=== PATIENT | female | born 1950 | race Caucasian/White ===

== ENCOUNTER 2017-06-17 05:38 | Outpatient (CLI) | payer MEDICARE ==
[~2017-06-17] VITALS: Ht 157.5 cm; Wt 63.7 kg
[~2017-06-17 05:38] MED LIST: ASP325T PO; CLD600T PO; IRB150T; IRBE1TAB15 PO; KCL10CCR PO; LEVO500T69 PO; LOSA1TAB20 PO; MULT1TAB63 PO; OMEPRAZOLE; SIMVASTATIN
[2017-06-17] MEDS ORDERED: CHOL20003 PO (11:06)
[2017-06-17] MEDS ORDERED: OMEP20TA7 PO (11:06)
[2017-06-17] MEDS ORDERED: SIMV20TA3 PO (11:06)
== END 2017-06-17 11:10 ==
LOC: PREOP 05:38
PROVIDERS: ATTEND Internal Medicine
DX: Z01.818 Encounter for other preprocedural examination (principal); D50.9 Iron deficiency anemia, unspecified; R10.32 Left lower quadrant pain

== ENCOUNTER 2017-06-18 07:21 | Day surgery (SDC) | payer MEDICARE ==
--- NOTE | 2017-06-17 12:33 | HISTORY AND PHYSICAL ---
DATE OF ADMISSION: 06/18/2017 DICTATING PHYSICIAN: Dr. Ny Ms. Mauricio is a 66-year-old white female who presented for routine follow-up on 05/31. She reports that she has been having some intermittent left lower quadrant abdominal pain without chills or fever. She denied bright red blood per rectum or melena. CBC was obtained, which did reveal mild microcytic anemia presumed iron deficiency with a hemoglobin of 12.8 and MCV of 78.7. Her RDW was significantly elevated at 18.7 and other CBC parameters as well as basic metabolic panel were unremarkable. It has been over 5 years since her last colonoscopy that revealed no evidence for neoplasia. She had a recent traumatic related hematoma involving the right ankle for which swelling and pain is completely resolved. She does have a history of hypertension and felt that diuretic therapy was aggravating urinary frequency. She really did not notice any change with the switch from losartan HCT 15/12.5 to losartan 100 mg daily in regards to urinary frequency; however, her blood pressure has been consistently in the 140 to 150/85 to 95 range at home. She has not had any problems with incontinence and denies dysuria, flank pain or hematuria. FAMILY HISTORY: She is not aware of any family history for colon cancer or polyps. She has no past smoking or drinking history. PAST MEDICAL HISTORY: Other than hypertension is significant for hyperlipidemia with no known history of coronary artery disease. She has a history of gastroesophageal reflux requiring chronic PPI therapy in the form of omeprazole 20 mg daily. PHYSICAL EXAMINATION: Reveals a white female, appears to be in no acute distress. VITAL SIGNS: Blood pressure at the beginning of the interview was 152/82, at the end of the interview was 160/85. Weight was stable at 137 pounds. CHEST: Clear. CV: Revealed a regular rate and rhythm without murmur, S3 or S4. ABDOMEN: Soft, supple. She had left lower quadrant pain to palpation without rebound or guarding. No mass or organomegaly was noted. Bowel sounds were noted in all 4 quadrants. ASSESSMENT: Iron deficiency anemia with left lower quadrant abdominal pain. After discussion, the patient does consent to colonoscopy. She was given a Andrea-prep kit and scheduled for the 06/18, an earlier time was offered but the patient wished to wait due to family activities until 06/18. Prep instructions were given and questions were answered. 25 minutes a personal time was spent in interview, examination and dictation with another 15 minutes of staff time. Sincerely, Job ID: [id number] Dictated Date: 05/31/2017 21:18:00 Ore Crushing Dust Collector Date: 06/01/2017 10:02:31/isiah
[~2017-06-18] VITALS: Ht 157.5 cm; Wt 63.7 kg
[~2017-06-18 07:21] MED LIST changes: +CHOL20003 PO; +OMEP20TA7 PO; +SIMV20TA3 PO
[2017-06-18 07:40] VITALS: BP 152/92
[2017-06-18] MEDS ORDERED: LIDOCAINE JELLY 2% (XYLOCAINE) 5 ML TUBE MM PRN (07:45)
[2017-06-18] MEDS ORDERED: 1/2 NS IV SOLUTION 1,000 ML IV PRN (07:45)
[2017-06-18] MEDS ORDERED: MIDAZOLAM 2 MG/2 ML (VERSED) VIAL ONE ×3 (08:30→08:56)
[2017-06-18] MEDS ORDERED: LIDOCAINE JELLY 2% (XYLOCAINE) 5 ML TUBE ONE (08:30)
[2017-06-18] MEDS ORDERED: fentaNYL INJECTION 100 MCG/2 ML AMP ONE ×2 (08:30→08:46)
[2017-06-18] MEDS: fentaNYL INJECTION 100 MCG/2 ML AMP IVP PRN ×3 (08:37→08:53)
[2017-06-18] MEDS: MIDAZOLAM 2 MG/2 ML (VERSED) VIAL IVP PRN ×4 (08:39→09:02)
[2017-06-18] MEDS ORDERED: ONDANSETRON 4 MG/2 ML (SDV) Z0FRAN ONE (08:46)
[2017-06-18 09:50] VITALS: BP 159/89
[2017-06-18 10:20] VITALS: BP 143/83
--- NOTE | 2017-06-18 12:22 | OPERATIVE REPORT ---
DATE OF SERVICE: PROCEDURE: Colonoscopy. INDICATION FOR PROCEDURE: A diagnostic colonoscopy done for iron deficiency anemia and left lower quadrant abdominal pain. The patient was placed in the left lateral decubitus position. Prior to undergoing colonoscopy digital rectal evaluation was performed. Anal sphincter tone was normal and perianal reflexes intact. Digital evaluation suggests an anterior rectocele with no other abnormalities being noted on digital inspection of anal canal or distal rectal vault. The colonoscope was then inserted into the rectum under direct visualization, advanced to the cecum. The cecum was identified by identification of the ileocecal valve and cecal strap. Photographic documentation was obtained. Careful inspection was made as the colonoscope was withdrawn. The patient tolerated the procedure well. FINDINGS: There is no evidence for internal or external hemorrhoids and the rectum was unremarkable. The patient did have an irritable bowel type response to air insufflation and colonic manipulation with a lot of cecal spasm. There was also one area where there appeared to be likely extrinsic adhesions. There was no evidence or stricture formation or evidence for neoplasia at this level in the distal sigmoid colon. With some difficulty, I was able to get beyond the area. No evidence for inflammation was noted. Several small diverticulum were noted confined to the sigmoid colon without evidence for diverticulitis. The descending colon, transverse colon, ascending colon were unremarkable. There was a small amount of blood in the cecum without evidence for active oozing at the time of the procedure. There appeared to be some subtle areas of likely angiodysplasia. The ileocecal valve was unremarkable and no evidence for blood was noted in the distal several centimeters of the terminal ileum. ASSESSMENT: 1. Likely angiodysplasia with a small amount of blood being noted in the cecum, the most likely cause of this patient's mild iron deficiency anemia. 2. The patient did have an irritable bowel type response to air insufflation and colonic manipulation. She was advised to come to the office for an irritable bowel syndrome sheet, but also has a low FODMAP diet list to follow. 3. There is an area in the distal sigmoid colon where there are likely some narrowing due to extrinsic adhesions without evidence for stricture formation or neoplasia. No evidence for acute diverticulitis, was noted. The patient does have a history of total abdominal hysterectomy. 4. We will be repeating a CBC in one month. We will add iron therapy if her counts are not recovering off of aspirin and all other antiplatelet therapy. Job ID: [id number] DocumentID: [id number] Dictated Date: 06/18/2017 11:51:46 Animation Camera Operator Date: 06/18/2017 12:22:12 Dictated By: JOE FELTON MD
[2017-06-18] MEDS ORDERED: ONDANSETRON 4 MG/2 ML (SDV) Z0FRAN IVP ONE (14:00)
== END 2017-06-18 11:35 | disposition home or self-care (01) ==
LOC: ENDO 07:21
PROVIDERS: ATTEND Internal Medicine
DX: D50.9 Iron deficiency anemia, unspecified (principal); K92.2 Gastrointestinal hemorrhage, unspecified; K57.30 Diverticulosis of large intestine without perforation or abscess without bleeding; K66.0 Peritoneal adhesions (postprocedural) (postinfection); I10 Essential (primary) hypertension; E78.00 Pure hypercholesterolemia, unspecified; I25.10 Atherosclerotic heart disease of native coronary artery without angina pectoris; K21.9 Gastro-esophageal reflux disease without esophagitis; Z79.899 Other long term (current) drug therapy

== ENCOUNTER → 2017-10-14 | Outpatient (CLI) | payer MEDICARE | LOC: RAD 12:36 | PROVIDERS: ATTEND Internal Medicine | DX: Z12.31 Encounter for screening mammogram for malignant neoplasm of breast (principal) | CPT/HCPCS: 77067 ==

== ENCOUNTER → 2018-10-17 | Outpatient (CLI) | payer MEDICARE ==
--- NOTE | 2018-10-17 11:21 | Diagnostic Imaging Report ---
INDICATION: Routine screening. Comparison is made with prior mammogram from 10/14/2017 and 10/06/2016. 2-D and 3-D bilateral screening mammography was performed with CAD. Scattered fibroglandular densities are identified bilaterally. Benign calcifications are identified on the right. No dominant mass or malignant appearing microcalcifications are seen. The axillae are unremarkable. Impression: BI-RADS category 2 No mammographic features suspicious for malignancy are identified. ACR BI-RADS Category 2: Benign findings. Result letter will be mailed to the patient. Note: At least 10% of breast cancer is not imaged by mammography. Dictated by: Dictated on workstation # [id number]
== END ==
LOC: RAD 09:34
PROVIDERS: ATTEND Internal Medicine
DX: Z12.31 Encounter for screening mammogram for malignant neoplasm of breast (principal)
CPT/HCPCS: 77067

== ENCOUNTER 2019-01-12 14:15 | Emergency (ER) | payer MEDICARE ==
[~2019-01-12] VITALS: Ht 157.5 cm; Wt 57.2 kg
[2019-01-12 15:08] LABS: BASOPHILS % (AUTO) 0 % (0-10); EOSINOPHILS % (AUTO) 0 % (0-10); HEMATOCRIT 45 % (35-52); HEMOGLOBIN 15.3 G/DL (11.5-16.0); LYMPHOCYTES # (AUTO) 1.1 X 10^3 (1.0-4.0); LYMPHOCYTES % (AUTO) 16 % (12-44); MEAN CORPUSCULAR HEMOGLOBIN 30 PG (25-34); MEAN CORPUSCULAR HGB CONC 34 G/DL (32-36); MEAN CORPUSCULAR VOLUME 88 FL (80-99); MEAN PLATELET VOLUME 9.7 FL (7.4-10.4); MONOCYTES # (AUTO) 0.8 X 10^3 (0.0-1.0); MONOCYTES % (AUTO) 11 % (0-12); NEUTROPHILS # (AUTO) 5.2 X 10^3 (1.8-7.8); NEUTROPHILS % (AUTO) 73 % (42-75); PLATELET COUNT 144 10^3/uL (130-400); RED CELL DISTRIBUTION WIDTH 13.8 % (10.0-14.5); WHITE BLOOD COUNT 7.1 10^3/uL (4.3-11.0)
--- NOTE | 2019-01-12 15:12 | ED Cough/URI ---
General Chief Complaint: Cough/Cold/Flu Symptoms Stated Complaint: POSS PNEUMONIA Source: patient Exam Limitations: no limitations History of Present Illness Date Seen by Provider: Jan 12, 2019 Time Seen by Provider: 15:10 Initial Comments To ER with reports of possible pneumonia. This began on Wednesday01/09/19 with reports of rhinorrhea and sore throat after working out in the leaves. She's had no appetite and general fatigue and has laid around most of the week. Starting today she developed fever up to 101 and a productive cough. She has no pre-existing known lung disorder such as COPD or asthma. Timing/Duration: constant, getting worse Severity/Quality: productive cough Prior Episodes/Possible Cause: no prior episodes Modifying Factors: Improves With Coughing Associated Symptoms: cough, muscle aches, nasal congestion, nasal drainage, shortness of breath, sore throat Allergies and Home Medications Allergies Coded Allergies: Penicillins (Verified Allergy, Unknown, 06/17/17) erythromycin base (Verified Allergy, Unknown, 06/17/17) meperidine (Verified Allergy, Unknown, 06/17/17) Home Medications Albuterol Sulfate 1 Puff Puff, 2 PUFF IH Q4H PRN for SHORTNESS OF BREATH 1 PUFF = 90 MCG Prescribed by: HONEY ROSA on 01/12/19 1548 Cholecalciferol (Vitamin D3) 2,000 Unit Capsule, 2,000 UNIT PO DAILY, (Reported) Doxycycline Monohydrate 100 Mg Capsule, 100 MG PO BID Prescribed by: HONEY ROSA on 01/12/19 1548 Losartan/Hydrochlorothiazide 1 Each Tablet, 1 TAB PO DAILY, (Reported) Omeprazole 20 Mg Tablet.dr, 20 MG PO DAILY, (Reported) Ondansetron 4 Mg Tab.rapdis, 4 MG PO Q6H PRN for NAUSEA/VOMITING Prescribed by: HONEY ROSA on 01/12/19 1548 Simvastatin 20 Mg Tablet, 20 MG PO HS, (Reported) Patient Home Medication List Home Medication List Reviewed: Yes Review of Systems Review of Systems Constitutional: see HPI, chills, malaise EENTM: see HPI, nose congestion, throat pain Respiratory: see HPI, cough Cardiovascular: no symptoms reported Genitourinary: no symptoms reported Musculoskeletal: no symptoms reported Skin: no symptoms reported Psychiatric/Neurological: No Symptoms Reported Past Kdisbed-Admryp-Wpxjvf Hx Patient Social History Recent Foreign Travel: No Contact w/Someone Who Travel: No Recent Hopitalizations: Yes Immunizations Up To Date Date of Pneumonia Vaccine: Apr 21, 2007 Date of Influenza Vaccine: Aug 24, 2016 Seasonal Allergies Seasonal Allergies: Yes Past Medical History Hysterectomy Pulmonary Embolism High Cholesterol, Hypertension 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 8.0oz. 63.212413xp; 25.7 BMI Method: General Appearance: WD/WN, no apparent distress, other (speaks in full sentences, no respiratory distress) HEENT: PERRL/EOMI, normal ENT inspection Neck: non-tender, full range of motion Respiratory: no respiratory distress, no accessory muscle use, crackles ( bilateral bases left greater than right) Cardiovascular: regular rate, rhythm, no murmur Gastrointestinal: normal bowel sounds, non tender, soft Neurologic/Psychiatric: alert, normal mood/affect, oriented x 3 Skin: normal color, warm/dry Progress/Results/Core Measures Suspected Sepsis SIRS Temperature: Pulse: Respiratory Rate: Laboratory Tests 01/12/19 15:00: White Blood Count 7.1 Blood Pressure / Mean: Laboratory Tests 01/12/19 15:00: Creatinine 1.20, Platelet Count 144, Total Bilirubin 0.7 Results/Orders Lab Results Laboratory Tests Test 01/12/19 15:00 Range/Units White Blood Count 7.1 4.3-11.0 10^3/uL Red Blood Count 5.14 4.35-5.85 10^6/uL Hemoglobin 15.3 11.5-16.0 G/DL Hematocrit 45 35-52 % Mean Corpuscular Volume 88 80-99 FL Mean Corpuscular Hemoglobin 30 25-34 PG Mean Corpuscular Hemoglobin Concent 34 32-36 G/DL Red Cell Distribution Width 13.8 10.0-14.5 % Platelet Count 144 130-400 10^3/uL Mean Platelet Volume 9.7 7.4-10.4 FL Neutrophils (%) (Auto) 73 42-75 % Lymphocytes (%) (Auto) 16 12-44 % Monocytes (%) (Auto) 11 0-12 % Eosinophils (%) (Auto) 0 0-10 % Basophils (%) (Auto) 0 0-10 % Neutrophils # (Auto) 5.2 1.8-7.8 X 10^3 Lymphocytes # (Auto) 1.1 1.0-4.0 X 10^3 Monocytes # (Auto) 0.8 0.0-1.0 X 10^3 Eosinophils # (Auto) 0.0 0.0-0.3 10^3/uL Basophils # (Auto) 0.0 0.0-0.1 10^3/uL Sodium Level 137 135-145 MMOL/L Potassium Level 3.3 L 3.6-5.0 MMOL/L Chloride Level 96 L 98-107 MMOL/L Carbon Dioxide Level 26 21-32 MMOL/L Anion Gap 15 H 5-14 MMOL/L Blood Urea Nitrogen 20 H 7-18 MG/DL Creatinine 1.20 0.60-1.30 MG/DL Estimat Glomerular Filtration Rate 44 BUN/Creatinine Ratio 17 Glucose Level 103 70-105 MG/DL Calcium Level 9.5 8.5-10.1 MG/DL Corrected Calcium 9.2 8.5-10.1 MG/DL Total Bilirubin 0.7 0.1-1.0 MG/DL Aspartate Amino Transf (AST/SGOT) 58 H 5-34 U/L Alanine Aminotransferase (ALT/SGPT) 57 H 0-55 U/L Alkaline Phosphatase 49 40-136 U/L Total Protein 7.9 6.4-8.2 GM/DL Albumin 4.4 3.2-4.5 GM/DL Micro Results Microbiology 01/12/19 Influenza Types A,B Antigen (FRED) - Final, Complete My Orders Orders - HONEY ROSA APRN Ns Iv 1000 Ml (Sodium Chloride 0.9%) (01/12/19 15:15) Ondansetron Injection (Zofran Injectio (01/12/19 15:15) Medications Given in ED Current Medications Medications Dose Ordered Sig/Yoana Route Start Time Stop Time Status Last Admin Dose Admin Ondansetron HCl 8 mg ONCE ONCE IVP 01/12/19 15:15 01/12/19 15:16 DC 01/12/19 15:24 8 MG Vital Signs/I&O 01/12/19 15:00 Temp 99.2 Pulse 76 Resp 16 B/P (MAP) 130/64 (86) Pulse Ox 94 Capillary Refill : Diagnostic Imaging Diagonstic Imaging: Xray Plain Films/CT/US/NM/MRI: chest Comments NAME: NATHANAEL MOSS [facility] REC#: [id number] PT STATUS: REG ER : 1950 PHYSICIAN: NAVEED IRIZARRY MD ADMIT DATE: 01/12/19/ER Draft Date of Exam:01/12/19 CHEST PA/LAT (2 VIEW) INDICATION: Cough, chills, and weakness. PA and lateral chest obtained at 03:14 p.m. and compared to 05/16/2015. Heart and mediastinal silhouette are normal in appearance. The lungs are clear. There is no pneumothorax or pleural fluid. IMPRESSION: Negative chest. Dictated on workstation # [id number] Dict: 01/12/19 1524 Trans: 01/12/19 1532 [id number] Interpreted by: TREMAYNE NESBITT MD Electronically signed by: Departure Impression Primary Impression: Bronchitis Disposition: 01 HOME, SELF-CARE Condition: Stable Departure-Patient Inst. Decision time for Depature: 15:46 Referrals: JOE NY MD (PCP/Family) Primary Care Physician Patient Instructions: Cough, Adult (DC) Add. Discharge Instructions: 1. Return to ER for any concerns 2. Follow-up with Dr. Ny later this week 3. Return to ER for any worsening. 4. I made a follow-up appointment for you with Dr. Ny Wednesday the at 10 AM All discharge instructions reviewed with patient and/or family. Voiced understanding. Scripts Doxycycline Monohydrate (Doxycycline Monohydrate) 100 Mg Capsule 100 MG PO BID, #14 CAP . Prov: HOENY ROSA APRN 01/12/19 Ondansetron (Ondansetron Odt) 4 Mg Tab.rapdis 4 MG PO Q6H PRN for NAUSEA/VOMITING, #10 TAB . Prov: HONEY ROSA TICKET TAKER FERRYBOAT 01/12/19 Albuterol Sulfate (PROAIR HFA) 1 Puff Puff 2 PUFF IH Q4H PRN for SHORTNESS OF BREATH, #1 PUFF 1 PUFF = 90 MCG. Prov: HONEY ROSA APRN 01/12/19 Copy Copies To 1: JOE NY MD, PETER J APRN Jan 12, 2019 15:12
[2019-01-12] MEDS ORDERED: NS IV 1000 ML 1,000 ML IV SCH (15:15)
[2019-01-12] MEDS ORDERED: ONDANSETRON 4 MG/2 ML (SDV) Z0FRAN IVP ONE (15:15)
[2019-01-12 15:32] LABS: ALBUMIN 4.4 GM/DL (3.2-4.5); BILIRUBIN,TOTAL 0.7 MG/DL (0.1-1.0); CALCIUM 9.5 MG/DL (8.5-10.1); CREATININE SERUM 1.2 MG/DL (0.60-1.30); POTASSIUM 3.3 MMOL/L (3.6-5.0); TOTAL PROTEIN 7.9 GM/DL (6.4-8.2)
--- NOTE | 2019-01-12 15:33 | Diagnostic Imaging Report ---
INDICATION: Cough, chills, and weakness. PA and lateral chest obtained at 03:14 p.m. and compared to 05/16/2015. Heart and mediastinal silhouette are normal in appearance. The lungs are clear. There is no pneumothorax or pleural fluid. IMPRESSION: Negative chest. Dictated by: Dictated on workstation # [id number]
[2019-01-12] MEDS ORDERED: ONDA4TAB11 PO ×2 (15:48→15:57)
[2019-01-12] MEDS ORDERED: RT-ALBUINH IH ×2 (15:48→15:57)
[2019-01-12] MEDS ORDERED: DOXY100C42 PO ×2 (15:48→15:57)
[2019-01-12 17:09] VITALS: BP 119/67
--- OUTSIDE RECORDS SUMMARY | 2019-01-15 02:45 | XMS REPORT | Continuity of Care Document ---
Author Author [facility] Organization [facility] Address Unknown Phone Unavailable Allergies Active Description Code Type Severity Reaction Onset Reported/Identified Relationship to Patient Clinical Status Yes Erythromycin Base [id number] Drug Allergy Unknown N/A 06/18/2017 Yes meperidine [id number] Drug Allergy Unknown N/A 06/18/2017 Yes Penicillins [id number] Drug Allergy Unknown N/A 06/18/2017 Medications There is no data. Problems Date Dx Coded Attending Type Code Diagnosis Diagnosed By 04/23/2013 JOHNNIE BURK MD Ot 272.4 HYPERLIPIDEMIA NEC/NOS 04/23/2013 JOHNNIE BURK MD Ot 276.8 HYPOPOTASSEMIA 04/23/2013 JOHNNIE BURK MD Ot 401.9 HYPERTENSION NOS 04/23/2013 JOHNNIE BURK MD Ot 413.9 ANGINA PECTORIS NEC/NOS 04/23/2013 JOHNNIE BURK MD Ot 593.9 RENAL URETERAL DIS NOS 04/23/2013 JOHNNIE BURK MD Ot 786.59 CHEST PAIN NEC 04/23/2013 JOHNNIE BURK MD Ot V12.51 HX-VENOUS THROMBOSIS EMBOLISM 04/23/2013 JOHNNIE BURK MD Ot V17.49 FAMILY HISTORY OF OTHER CARDIOVASCULAR D 04/23/2013 JOHNNIE BURK MD Ot V58.66 LONG-TERM (CURRENT) USE OF ASPIRIN 04/23/2013 JOHNNIE BURK MD Ot V58.69 OTH MED,LT,CURRENT USE 09/27/2014 JOHNNIE BURK MD Ot V76.12 05/16/2015 RUSS STEVENSON MD Ot 496 CHR AIRWAY OBSTRUCT NEC 05/16/2015 RUSS STEVENSON MD Ot 786.30 HEMOPTYSIS, UNSPECIFIED 05/16/2015 RUSS STEVENSON MD Ot V58.69 OTH MED,LT,CURRENT USE 09/27/2015 JOE FELTON MD Ot Z12.31 10/06/2016 JOE FELTON MD Ot Z12.31 ENCNTR SCREEN MAMMOGRAM FOR MALIGNANT NE 10/06/2016 JOE FELTON MD Ot Z12.31 ENCNTR SCREEN MAMMOGRAM FOR MALIGNANT NE 10/21/2016 JOE FELTON MD Ot Z12.31 ENCNTR SCREEN MAMMOGRAM FOR MALIGNANT NE 06/11/2017 Ot 719.47 JOINT PAIN- ANKLE 06/11/2017 Ot 959.7 LOWER LEG INJURY NOS 06/11/2017 Ot E000.8 OTHER EXTERNAL CAUSE STATUS 06/11/2017 Ot E849.0 ACCIDENT IN HOME 06/11/2017 Ot E917.3 FURNIT W/O SUB FALL 06/11/2017 Ot V76.12 OTH SCREEN MAMMO-MALIGN NEOPLASM OF MALIK 06/11/2017 JOHNNIE BURK MD Ot 733.90 BONE CARTILAGE DIS NOS 06/11/2017 JOHNNIE BURK MD Ot V76.12 OTH SCREEN MAMMO-MALIGN NEOPLASM OF [place] 06/11/2017 JOHNNIE BURK MD Ot V82.81 SCREENING FOR OSTEOPOROSIS 06/11/2017 JOHNNIE BURK MD Ot V76.12 OTH SCREEN MAMMO-MALIGN NEOPLASM OF [place] 06/11/2017 JOE FELTON MD Ot Z12.31 ENCNTR SCREEN MAMMOGRAM FOR MALIGNANT NE 06/11/2017 JOE FELTON MD Ot Z12.31 ENCNTR SCREEN MAMMOGRAM FOR MALIGNANT NE 06/14/2017 Ot 719.47 JOINT PAIN- ANKLE 06/14/2017 Ot 959.7 LOWER LEG INJURY NOS 06/14/2017 Ot E000.8 OTHER EXTERNAL CAUSE STATUS 06/14/2017 Ot E849.0 ACCIDENT IN HOME 06/14/2017 Ot E917.3 FURNIT W/O SUB FALL 06/14/2017 Ot V76.12 OTH SCREEN MAMMO-MALIGN NEOPLASM OF [place] 06/14/2017 JOHNNIE BURK MD Ot 733.90 BONE CARTILAGE DIS NOS 06/14/2017 JOHNNIE BURK MD Ot V76.12 OTH SCREEN MAMMO-MALIGN NEOPLASM OF MALIK 06/14/2017 JOHNNIE BURK MD Ot V82.81 SCREENING FOR OSTEOPOROSIS 06/14/2017 ERMELINDA BURK MDEEN M Ot V76.12 OTH SCREEN MAMMO-MALIGN NEOPLASM OF [place] 06/14/2017 JOSE FRANCISCO CAMPBELL, JOE Ling Ot Z12.31 ENCNTR SCREEN MAMMOGRAM FOR MALIGNANT NE 06/14/2017 JOE FELTON MD Ot Z12.31 ENCNTR SCREEN MAMMOGRAM FOR MALIGNANT NE 06/16/2017 Ot 719.47 JOINT PAIN- ANKLE 06/16/2017 Ot 959.7 LOWER LEG INJURY NOS 06/16/2017 Ot E000.8 OTHER EXTERNAL CAUSE STATUS 06/16/2017 Ot E849.0 ACCIDENT IN HOME 06/16/2017 Ot E917.3 FURNIT W/O SUB FALL 06/16/2017 Ot V76.12 OTH SCREEN MAMMO-MALIGN NEOPLASM OF [place] 06/16/2017 BHARGAVI CAMPBELL, JOHNNIE Denis Ot 733.90 BONE CARTILAGE DIS NOS 06/16/2017 JOHNNIE BURK MD Ot V76.12 OTH SCREEN MAMMO-MALIGN NEOPLASM OF [place] 06/16/2017 JOHNNIE BURK MD Ot V82.81 SCREENING FOR OSTEOPOROSIS 06/16/2017 JOHNNIE BURK MD Ot V76.12 OTH SCREEN MAMMO-MALIGN NEOPLASM OF [place] 06/16/2017 JOSE FRANCISCO CAMPBELL, JOE Ling Ot Z12.31 ENCNTR SCREEN MAMMOGRAM FOR MALIGNANT NE 06/16/2017 JOE FELTON MD Ot Z12.31 ENCNTR SCREEN MAMMOGRAM FOR MALIGNANT NE 06/17/2017 JOE FELTON MD Ot D50.9 IRON DEFICIENCY ANEMIA, UNSPECIFIED 06/17/2017 JOE FELTON MD Ot R10.32 LEFT LOWER QUADRANT PAIN 06/17/2017 JOE FLETON MD Ot Z01.818 ENCOUNTER FOR OTHER PREPROCEDURAL EXAMIN 06/17/2017 JOE FELTON MD Ot D50.9 IRON DEFICIENCY ANEMIA, UNSPECIFIED 06/17/2017 JOE FELTON MD Ot R10.32 LEFT LOWER QUADRANT PAIN 06/17/2017 JOE FELTON MD Ot Z01.818 ENCOUNTER FOR OTHER PREPROCEDURAL EXAMIN 06/17/2017 JOE FELTON MD Ot D50.9 IRON DEFICIENCY ANEMIA, UNSPECIFIED 06/17/2017 JOE FELTON MD Ot R10.32 LEFT LOWER QUADRANT PAIN 06/17/2017 JOE FELTON MD Ot Z01.818 ENCOUNTER FOR OTHER PREPROCEDURAL EXAMIN 06/18/2017 Ot 719.47 JOINT PAIN- ANKLE 06/18/2017 Ot 959.7 LOWER LEG INJURY NOS 06/18/2017 Ot E000.8 OTHER EXTERNAL CAUSE STATUS 06/18/2017 Ot E849.0 ACCIDENT IN HOME 06/18/2017 Ot E917.3 FURNIT W/O SUB FALL 06/18/2017 Ot V76.12 OTH SCREEN MAMMO-MALIGN NEOPLASM OF MALIK 06/18/2017 BHARGAVI CAMPBELL, JOHNNIE Denis Ot 733.90 BONE CARTILAGE DIS NOS 06/18/2017 JOHNNIE BURK MD Ot V76.12 OTH SCREEN MAMMO-MALIGN NEOPLASM OF MAL[place] 06/18/2017 JOHNNIE BURK MD Ot V82.81 SCREENING FOR OSTEOPOROSIS 06/18/2017 JOHNNIE BURK MD Ot V76.12 OTH SCREEN MAMMO-MALIGN NEOPLASM OF [place] 06/18/2017 JOE FELTON MD Ot Z12.31 ENCNTR SCREEN MAMMOGRAM FOR MALIGNANT NE 06/18/2017 JOE FELTON MD Ot Z12.31 ENCNTR SCREEN MAMMOGRAM FOR MALIGNANT NE 06/18/2017 JOE FELTON MD Ot D50.9 IRON DEFICIENCY ANEMIA, UNSPECIFIED 06/18/2017 JOE FELTON MD Ot E78.00 PURE HYPERCHOLESTEROLEMIA, UNSPECIFIED 06/18/2017 JOE FELTON MD Ot I10 ESSENTIAL (PRIMARY) HYPERTENSION 06/18/2017 JOE FELTON MD Ot I25.10 ATHSCL HEART DISEASE OF [place] CORONARY 06/18/2017 JOE FELTON MD Ot K21.9 GASTRO-ESOPHAGEAL REFLUX DISEASE WITHOUT 06/18/2017 JOE FELTON MD Ot K57.30 DVRTCLOS OF LG INT W/O PERFORATION OR AB 06/18/2017 JOE FELTON MD Ot 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 06/18/2017 JOE FELTON MD Ot K92.2 GASTROINTESTINAL HEMORRHAGE, UNSPECIFIED 06/18/2017 JOE FELTON MD Ot Z79.899 OTHER ASSISTED (CURRENT) DRUG THERAPY 06/23/2017 JOE FELTON MD Ot D50.9 IRON DEFICIENCY ANEMIA, UNSPECIFIED 06/23/2017 JOE FELTON MD Ot R10.32 LEFT LOWER QUADRANT PAIN 06/23/2017 JOE FELTON MD, Ot Z01.818 ENCOUNTER FOR OTHER PREPROCEDURAL EXAMIN 06/24/2017 JOE FELTON MD, Ot D50.9 IRON DEFICIENCY ANEMIA, UNSPECIFIED 06/24/2017 JOE FELTON MD Ot E78.00 PURE HYPERCHOLESTEROLEMIA, UNSPECIFIED 06/24/2017 JOE FELTON MD, Ot I10 ESSENTIAL (PRIMARY) HYPERTENSION 06/24/2017 JOE FELTON MD, Ot I25.10 ATHSCL HEART DISEASE OF [place] CORONARY 06/24/2017 JOE FELTON MD, Ot K21.9 GASTRO-ESOPHAGEAL REFLUX DISEASE WITHOUT 06/24/2017 JOE FELTON MD, Ot K57.30 DVRTCLOS OF LG INT W/O PERFORATION OR AB 06/24/2017 JOE FELTON MD, Ot 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 06/24/2017 JOE FELTON MD, Ot K92.2 GASTROINTESTINAL HEMORRHAGE, UNSPECIFIED 06/24/2017 JOE FELTON MD, Ot Z79.899 OTHER ASSISTED (CURRENT) DRUG THERAPY 10/12/2017 JOE FELTON MD Ot Z12.31 ENCNTR SCREEN MAMMOGRAM FOR MALIGNANT NE 11/03/2017 JOE FELTON MD, Ot Z12.31 ENCNTR SCREEN MAMMOGRAM FOR MALIGNANT NE 09/28/2018 JOE FELTON MD Ot Z12.31 ENCNTR SCREEN MAMMOGRAM FOR MALIGNANT NE 10/18/2018 JOE FELTON MD Ot Z12.31 ENCNTR SCREEN MAMMOGRAM FOR MALIGNANT NE 01/12/2019 JOHNNIE BURK MD Ot 733.90 BONE CARTILAGE DIS NOS 01/12/2019 JOHNNIE BURK MD Ot V76.12 OTH SCREEN MAMMO-MALIGN NEOPLASM OF MALIK 01/12/2019 JOHNNIE BURK MD Ot V82.81 SCREENING FOR OSTEOPOROSIS 01/12/2019 JOHNNIE BURK MD Ot V76.12 OTH SCREEN MAMMO-MALIGN NEOPLASM OF [place] 01/12/2019 JOE FELTON MD Ot Z12.31 ENCNTR SCREEN MAMMOGRAM FOR MALIGNANT NE 01/12/2019 JOE FELTON MD, Ot Z12.31 ENCNTR SCREEN MAMMOGRAM FOR MALIGNANT NE 01/12/2019 JOE FELTON MD Ot Z12.31 ENCNTR SCREEN MAMMOGRAM FOR MALIGNANT NE 01/12/2019 JOE FELTON MD Ot Z12.31 ENCNTR SCREEN MAMMOGRAM FOR MALIGNANT NE Procedures There is no data. Results Test Result Range Influenza virus A and B antigen detection - 01/12/19 14:47 FLU RESULT NEGATIVE FOR INFLUENZA A AND B ANTIGENS BY IA NR Complete blood count (CBC) with automated white blood cell (WBC) differential - 01/12/19 15:00 Blood leukocytes automated count (number/volume) 7.1 10*3/uL 4.3-11.0 Blood erythrocytes automated count (number/volume) 5.14 10*6/uL 4.35-5.85 Venous blood hemoglobin measurement (mass/volume) 15.3 g/dL 11.5-16.0 Blood hematocrit (volume fraction) 45 % 35-52 Automated erythrocyte mean corpuscular volume 88 [foz_us] 80-99 Automated erythrocyte mean corpuscular hemoglobin (mass per erythrocyte) 30 pg 25-34 Automated erythrocyte mean corpuscular hemoglobin concentration measurement ( mass/volume) 34 g/dL 32-36 Automated erythrocyte distribution width ratio 13.8 % 10.0-14.5 Automated blood platelet count (count/volume) 144 10*3/uL 130-400 Automated blood platelet mean volume measurement 9.7 [foz_us] 7.4-10.4 Automated blood neutrophils/100 leukocytes 73 % 42-75 Automated blood lymphocytes/100 leukocytes 16 % 12-44 Blood monocytes/100 leukocytes 11 % 0-12 Automated blood eosinophils/100 leukocytes 0 % 0-10 Automated blood basophils/100 leukocytes 0 % 0-10 Blood neutrophils automated count (number/volume) 5.2 10*3 1.8-7.8 Blood lymphocytes automated count (number/volume) 1.1 10*3 1.0-4.0 Blood monocytes automated count (number/volume) 0.8 10*3 0.0-1.0 Automated eosinophil count 0.0 10*3/uL 0.0-0.3 Automated blood basophil count (count/volume) 0.0 10*3/uL 0.0-0.1 Comprehensive metabolic panel - 01/12/19 15:00 Serum or plasma sodium measurement (moles/volume) 137 mmol/L 135-145 Serum or plasma potassium measurement (moles/volume) 3.3 mmol/L 3.6-5.0 Serum or plasma chloride measurement (moles/volume) 96 mmol/L 98-107 Carbon dioxide 26 mmol/L 21-32 Serum or plasma anion gap determination (moles/volume) 15 mmol/L 5-14 Serum or plasma urea nitrogen measurement (mass/volume) 20 mg/dL 7-18 Serum or plasma creatinine measurement (mass/volume) 1.20 mg/dL 0.60-1.30 Serum or plasma urea nitrogen/creatinine mass ratio 17 NRG Serum or plasma creatinine measurement with calculation of estimated glomerular filtration rate 44 NRG Serum or plasma glucose measurement (mass/volume) 103 mg/dL 70-105 Serum or plasma calcium measurement (mass/volume) 9.5 mg/dL 8.5-10.1 Serum or plasma total bilirubin measurement (mass/volume) 0.7 mg/dL 0.1-1.0 Serum or plasma alkaline phosphatase measurement (enzymatic activity/volume) 49 U/L 40-136 Serum or plasma aspartate aminotransferase measurement (enzymatic activity/ volume) 58 U/L 5-34 Serum or plasma alanine aminotransferase measurement (enzymatic activity/volume ) 57 U/L 0-55 Serum or plasma protein measurement (mass/volume) 7.9 g/dL 6.4-8.2 Serum or plasma albumin measurement (mass/volume) 4.4 g/dL 3.2-4.5 CALCIUM CORRECTED 9.2 mg/dL 8.5-10.1 Encounters ACCT No. Visit Date/Time Discharge Status Pt. Type Provider Facility Loc./Unit Complaint [id number] 01/12/2019 14:17:00 01/12/2019 17:09:00 DIS Emergency HONEY ROSA APRN [facility] ER POSS PNEUMONIA [id number] 10/17/2018 09:34:00 10/17/2018 23:59:59 CLS Outpatient JOE FELTON MD [facility] RAD SCREENING [id number] 10/14/2017 12:36:00 10/14/2017 23:59:59 CLS Outpatient JOE FELTON MD [facility] RAD SCREENING [id number] 06/18/2017 07:21:00 06/18/2017 11:35:00 DIS Outpatient JOE FELTON MD [facility] ENDO IRON DEFICENCY, ANEMIA, LEFT LOWER QUADRAND ABDOM [id number] 06/17/2017 05:38:00 06/17/2017 11:10:00 DIS Outpatient JOE FELTON MD [facility] PREOP IRON DEFIENCY, ANEMIA, LLQ ABDOMINAL PAIN [id number] 10/06/2016 11:04:00 10/06/2016 23:59:59 CLS Outpatient JOE FLETON MD [facility] RAD SCREENING [id number] 09/17/2015 09:02:00 09/17/2015 23:59:59 CLS Outpatient JOE FELTON MD [facility] RAD SCREENING [id number] 05/16/2015 15:08:00 05/16/2015 19:31:00 DIS Emergency RUSS STEVENSON MD [facility] ER COUGHING UP BLOOD [id number] 09/11/2014 09:12:00 09/11/2014 23:59:59 CLS Outpatient JOHNNIE BURK MD [facility] RAD SCREENING [id number] 08/18/2013 09:37:00 08/18/2013 23:59:59 CLS Outpatient JOHNNIE BURK MD [facility] RAD SCREENING [id number] 04/22/2013 21:45:00 04/23/2013 15:40:00 DIS Outpatient JOHNNIE BURK MD [facility] CATH CHEST PAIN [id number] 08/11/2012 09:28:00 Document Registration [id number] 06/13/2012 09:53:00 Document Registration [id number] 05/16/2015 15:08:28 ACT Document Registration
== END 2019-01-12 17:09 | disposition home or self-care (01) ==
LOC: EDUNIT# 14:15 → ER 14:17
DX: J40 Bronchitis, not specified as acute or chronic (principal); E78.00 Pure hypercholesterolemia, unspecified; I10 Essential (primary) hypertension; K21.9 Gastro-esophageal reflux disease without esophagitis; Z87.19 Personal history of other diseases of the digestive system; Z88.0 Allergy status to penicillin; Z88.1 Allergy status to other antibiotic agents; Z88.8 Allergy status to other drugs, medicaments and biological substances; Z79.51 Long term (current) use of inhaled steroids; Z90.710 Acquired absence of both cervix and uterus; Z86.711 Personal history of pulmonary embolism
CPT/HCPCS: 36415; 71046; 80053; 85025; 87804; 93005; 93041; 96361; 96374

== ENCOUNTER → 2020-05-06 | Outpatient (CLI) | payer MEDICARE ==
[~2020-05-06] MED LIST changes: +DOXY100C42 PO; +HOLD METFORMIN - RECEIVED CONTRAST 20 ML VIAL IV SCH; +IOHEXOL 350 MG/ML 100 ML (OMNIPAQUE 350) VIAL IV ONE; +NS 100 ML (IVPB) BAG IV ONE; +ONDA4TAB11 PO; +RT-ALBUINH IH; +SIMV20TA26 PO; -SIMV20TA3 PO
--- NOTE | 2020-05-06 08:15 | Diagnostic Imaging Report ---
EXAMINATION: CT angiography of the chest. TECHNIQUE: Contrast enhanced thin section helical images were obtained through the chest with intravenous contrast timed for the optimal opacification of the arterial structures per CTA protocol. Post-processing, reconstructions and interpretation of angiographic images of the vessels was performed. 3D MIP reconstructions were performed and reviewed. All CT scans use one or more of the following dose optimizing techniques: automated exposure control, MA and/or KvP adjustment based on a patient size and exam type, or iterative reconstruction. HISTORY: Dyspnea, elevated D-dimer COMPARISON: 05/16/2015 FINDINGS: There is no pulmonary embolism. There is mild mosaic attenuation in keeping with small vessels or small airways disease. There is mild atelectasis in the lung bases. There are a few areas of mucus plugging in the lung bases with a few tree-in-bud nodules in the posterior segment of the right upper lobe. There are also tree-in-bud nodules in the right middle lobe as well as the lingula. There is mild lingular and right middle lobe bronchiectasis. No pleural effusion. No pneumothorax. Heart size is normal. There are mild coronary artery calcifications. No pericardial effusion. Aorta is normal in caliber. There is no axillary or supraclavicular lymphadenopathy. There are unchanged mildly prominent bilateral hilar lymph nodes with suggestions of internal calcification likely representing prior granulomatous infection. Limited views of the upper abdomen are unremarkable. There are no suspicious osseus lesions. IMPRESSION: 1. No pulmonary embolism. 2. Scattered areas of mucus plugging and tree-in-bud nodules and bronchiectasis involving the posterior segment of the right upper lobe, posterior lower lobes bilaterally and the right middle lobe and lingula. 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 Dictated by: Dictated on workstation # [id number]
== END ==
LOC: RAD 07:10
PROVIDERS: ATTEND Internal Medicine
DX: R06.00 Dyspnea, unspecified (principal); R79.1 Abnormal coagulation profile; Z86.711 Personal history of pulmonary embolism
CPT/HCPCS: 71275

== ENCOUNTER → 2021-01-15 | Outpatient (CLI) | payer MEDICARE ==
[~2021-01-15] MED LIST changes: -HOLD METFORMIN - RECEIVED CONTRAST 20 ML VIAL IV SCH; -IOHEXOL 350 MG/ML 100 ML (OMNIPAQUE 350) VIAL IV ONE; -NS 100 ML (IVPB) BAG IV ONE
--- NOTE | 2021-01-15 14:16 | Diagnostic Imaging Report ---
INDICATION: Lower respiratory infection, cough. EXAMINATION: PA and lateral chest. FINDINGS: The heart size and pulmonary vascularity are normal. The lungs are clear. There are no effusions or pneumothoraces. There is a 1.5 cm opacity in the left hilum which is more apparent than on a prior exam from 01/12/2019. A developing nodule could not be excluded. IMPRESSION: Possible left hilar mass. Recommend further evaluation with CT. Dictated by: Dictated on workstation # [id number]
== END ==
LOC: RAD 13:31
PROVIDERS: ATTEND Nurse Practitioner Family
DX: J22 Unspecified acute lower respiratory infection (principal)
CPT/HCPCS: 71046

== ENCOUNTER 2021-09-03 07:55 | Outpatient (RCR) | payer MEDICARE ==
[~2021-09-03] VITALS: Ht 157.5 cm; Wt 60.0 kg
[~2021-09-03 07:55] MED LIST changes: +ASCO500C17 PO; +DOXY-311 PO; -DOXY100C42 PO; +PANT40TA52 PO; +POTA10TA6 PO
== END 2021-09-03 11:41 | disposition home or self-care (01) ==
LOC: PREOP 07:55
PROVIDERS: ATTEND Internal Medicine
DX: Z01.812 Encounter for preprocedural laboratory examination (principal); Z20.822 Contact with and (suspected) exposure to COVID-19; K21.9 Gastro-esophageal reflux disease without esophagitis; R05.9 Cough, unspecified
CPT/HCPCS: 87635

== ENCOUNTER 2021-09-05 09:19 | Day surgery (SDC) | payer MEDICARE ==
--- NOTE | 2021-08-31 18:15 | HISTORY AND PHYSICAL ---
DATE OF SERVICE: EGD HISTORY AND PHYSICAL HISTORY OF PRESENT ILLNESS: The patient is a 71-year-old white female who reports a several month history of increasing predominantly morning reflux symptoms. She notes this upon getting out of bed in the morning. She will have some chest discomfort with full sensation. She denies abdominal pain, but that she has had low-grade sore throat, worse in the morning, better as the day goes on. She does take omeprazole each morning before breakfast, is not using antacids for breakthrough symptoms. She denies dysphagia. She does report continued fatigue. She did undergo a sleep study evaluation revealing an AHI index of 16 compatible with moderate sleep apnea. She has not followed through with obtaining CPAP machine as she reports that she sleeps on her stomach and she is concerned about tolerating the machine. Respiratory symptoms have resolved after Z-Pablo round a month ago. She has had no recurrence of any significant cough or sputum. Denies night sweats, chills or fever. PHYSICAL EXAMINATION: GENERAL: Reveals a white female who appeared to be in no acute distress. VITAL SIGNS: Weight stable at 131.8 pounds, blood pressure 120/70. CHEST: Clear. CARDIOVASCULAR: Reveals a regular rate and rhythm without murmur, S3 or S4. HEENT: Oral cavity clear. No evidence for exudate or erythema. ABDOMEN: Soft, supple without mass, organomegaly or tenderness. ASSESSMENT AND PLAN: 1. Gastroesophageal reflux, refractory to PPI therapy with chronic low level sore throat that I suspect is related. The patient has previously not undergone EGD evaluation. We will do so with further recommendations pending. 2. Hypertension, under good control. 3. Fatigue. Discussed that this was likely due to untreated sleep apnea as long as there is not significant pathology noted on her EGD. We will be strongly advising that she proceed with CPAP therapy. We also sent off blood work. If this is unremarkable from a fatigue standpoint including CBC, thyroid and chemistry panel would also point to sleep apnea as being the route of her decrease in quality of life and fatigue. The patient was set up for EGD at [facility]. Job ID: [id number] DocumentID: [id number] Dictated Date: 08/27/2021 16:19:09 Park Ranger Date: 08/27/2021 16:34:50 Dictated By: JOE FELTON MD [facility]
[~2021-09-05] VITALS: Ht 157.5 cm; Wt 60.0 kg
[2021-09-05] MEDS ORDERED: LACTATED RINGERS 1,000 ML IV ONE (09:24)
--- NOTE | 2021-09-05 09:32 | Pre-Op Note & Conscious Sedat ---
Pre-Operative Progress Note H&P Reviewed The H&P was reviewed, patient examined and no changes noted. Date H&P Reviewed: Sep 05, 2021 Time H&P Reviewed: 09:32 Conscious Sedation Pre-Proced ASA Score 2 For ASA 3 and 4: Consider anesthesia and medical clearance. Also, for patients with a history of failed moderate sedation consider anesthesia. Airway Lungs Heart ASA score ASA 1: a normal healthy patient ASA 2: a patient with a mild systemic disease (mid diabetes, controlled hypertension, obesity ASA 3: a patient with a severe systemic disease that limits activity (angina, COPD, prior Myocardial infarction) ASA 4: a patient with an incapacitating disease that is a constant threat to life (CHF, renal failure) ASA 5: a moribund patient not expected to survive 24 hrs. (ruptured aneurysm) ASA 6: a declared brain- patient whose organs are being harvested. For emergent operations, add the letter E after the classification Mallampati Classification Grade 2 Sedation Plan Analgesia, Amnesia, Plan communicated to team members, Discussed options with patient/fam, Discussed risks with patient/fam The patient is an appropriate candidate to undergo the planned procedure, sedation, and anesthesia. The patient immediately re-assessed prior to indication. JOE FELTON MD Sep 05, 2021 09:32
[2021-09-05] MEDS ORDERED: LACTATED RINGERS 1,000 ML IV STA (09:37)
[2021-09-05] MEDS ORDERED: LIDOCAINE JELLY 2% 6 ML SYRINGE MM PRN (09:45)
[2021-09-05] MEDS ORDERED: HURRICAINE EXT TUBE (BENZOCAINE) XX PRN (09:45)
[2021-09-05 09:47] VITALS: BP 158/70
[2021-09-05] MEDS ORDERED: PROPOFOL INJECTION 50 ML IV ONE (10:40)
[2021-09-05] MEDS ORDERED: MIDAZOLAM 2 MG/2 ML (VERSED) VIAL ONE (10:40)
[2021-09-05 11:00] VITALS: BP 124/56
[2021-09-05 11:05] VITALS: BP 110/61
[2021-09-05 11:10] VITALS: BP 110/61
[2021-09-05 11:39] VITALS: BP 136/68
[2021-09-05 11:40] VITALS: BP 136/68
--- NOTE | 2021-09-05 14:46 | Anesthesia-General Post-Op ---
MAC Patient Condition Mental Status/LOC: Same as Preop Cardiovascular: Satisfactory Nausea/Vomiting: Absent Respiratory: Satisfactory Pain: Controlled Complications: Absent Post Op Complications Complications None Follow Up Care/Instructions Patient Instructions None needed. Anesthesiology Discharge Order Discharge Order Patient is doing well, no complaints, stable vital signs, no apparent adverse anesthesia problems. No complications reported per nursing. MONA TOLENTINO CRNA Sep 05, 2021 14:46
--- NOTE | 2021-09-05 16:09 | OPERATIVE REPORT ---
DATE OF SERVICE: EGD SUMMARY PRIMARY CARE PHYSICIAN: Joe Felton MD INDICATION FOR THE PROCEDURE: Reflux refractory to PPI therapy with cough. DESCRIPTION OF PROCEDURE: The patient was placed in the left lateral decubitus position. The endoscope was inserted in the oral cavity and under direct visualization, esophagus was intubated. The endoscope was passed down the esophagus through stomach and second portion of the duodenum. Careful inspection was made as the endoscope was withdrawn. The patient tolerated the procedure well. FINDINGS: The posterior pharynx, epiglottis, arytenoid aperture and true and false vocal folds were unremarkable to visual inspection. The proximal, mid and distal esophagus were unremarkable. There is a moderate 2 to 3 cm hiatal hernia present without evidence for erosive esophagitis. The Z line was distinct. No evidence to gross inspection for Winchester's change was noted. The cardia, fundus, antrum, pylorus, pyloric channel, duodenal bulb and second portion of the duodenum were unremarkable. No evidence for peptic ulcer disease is noted. ASSESSMENT: There is a moderate 2 to 3 cm hiatal hernia present without evidence for erosive esophagitis. This patient's symptoms are compatible with gastroesophageal reflux disease, for which pantoprazole is not effective, it has been effective for 12 to 14 hours. We will increase the dose to b.i.d. with breakfast and her evening meal. Advised that she elevate the head of her bed 4-6 inches and avoid eating or drinking at least 3, preferably 4 hours prior to bed at night. Job ID: [id number] DocumentID: [id number] Dictated Date: 09/05/2021 11:44:16 Salvager Date: 09/05/2021 16:09:01 Dictated By: JOE FELTON MD
== END 2021-09-05 11:46 | disposition home or self-care (01) ==
LOC: ENDO 09:19
PROVIDERS: ATTEND Internal Medicine
DX: K21.9 Gastro-esophageal reflux disease without esophagitis (principal); K44.9 Diaphragmatic hernia without obstruction or gangrene; I10 Essential (primary) hypertension; R53.83 Other fatigue; E78.5 Hyperlipidemia, unspecified; J45.909 Unspecified asthma, uncomplicated; G47.33 Obstructive sleep apnea (adult) (pediatric); Z79.899 Other long term (current) drug therapy

== ENCOUNTER → 2023-09-01 | Outpatient (CLI) | payer MEDICARE, OTHER ==
[~2023-09-01] MED LIST changes: +ALBU8.5H6 IH; -DOXY-311 PO; +DOXY-444 PO; +OMEP20TA56 PO; -OMEP20TA7 PO; +POTA-160 PO; -POTA10TA6 PO; -RT-ALBUINH IH
--- NOTE | 2023-09-01 15:51 | Diagnostic Imaging Report ---
INDICATION: Routine screening. Comparison is made with prior mammogram from 10/14/2017 and 10/06/2016. 2-D and 3-D bilateral screening mammography was performed with CAD. Scattered fibroglandular densities are identified bilaterally. There are benign calcifications bilaterally. No mass or malignant-appearing microcalcifications are seen. Axillae are unremarkable. IMPRESSION: No mammographic features suspicious for malignancy are identified. ACR BI-RADS Category 2: Benign findings. Result letter will be mailed to the patient. Note: At least 10% of breast cancer is not imaged by mammography. BI-RADS Category 2 Dictated by: Dictated on workstation # [id number]
== END ==
LOC: RAD 13:57
PROVIDERS: ATTEND Internal Medicine
DX: Z12.31 Encounter for screening mammogram for malignant neoplasm of breast (principal)
CPT/HCPCS: 77063; 77067